=== PATIENT | female | born 1950 | race Caucasian/White ===

== ENCOUNTER 2022-06-19 09:24 | Emergency (ER) | payer OTHER ==
[2022-06-19 09:40] VITALS: BP 146/66; PULSE 79; RESP 18; TEMP 98.4; BMI 26.7
[2022-06-19] MEDS ORDERED: ACETAMINOPHEN 325 MG TABLET (FP) PO ONE (09:57)
[2022-06-19] MEDS ORDERED: ACETAMINOPHEN 325 MG TABLET (FP) ONE (09:59)
== END 2022-06-19 11:09 | disposition home or self-care (01) ==
LOC: FER 09:24
PROC: 2W3FX1Z Immobilization of Left Hand using Splint (ICD-10-PCS; principal; 2022-06-19)
DX: S69.92XA Unspecified injury of left wrist, hand and finger(s), initial encounter (principal); W01.0XXA Fall on same level from slipping, tripping and stumbling without subsequent striking against object, initial encounter
CPT/HCPCS: 73110-TC-LT-FY; 73110-TC-RT-FY; 73130-TC-LT-FY; 99283-25